=== PATIENT | female | born 1985 | race Caucasian/White ===

== ENCOUNTER 2022-04-25 13:18 | Inpatient (IN) ==
[2022-04-25 15:13] LABS: Hematocrit (blood only) 35.2 % (34.1-44.9); Hemoglobin 11.6 g/dl (12.0-16.0); Mean Corpuscular Hemoglobin 28.9 pg (25.0-34.0); Mean Corpuscular Volume 87.8 fL (80.0-100.0); Mean Platelet Volume 11.9 fL (9.4-12.3); Platelet Count 159 K/uL (130-400); RDW Coefficient of Variation 15.2 % (11.5-14.5); RDW Standard Deviation 48.3 fL (36.4-46.3); Red Blood Count 4.01 M/uL (3.93-5.22); White Blood Count 10.11 K/ul (4.8-10.8)
[2022-04-25 15:38] LABS: Alanine Aminotransferase 11 U/L (7-52); Aspartate Aminotransferase 19 U/L (13-39); Est GFR (African American) 130.8 ml/min; Est GFR (Non-African American) 112.9 ml/min
[2022-04-25 16:00] LABS: Creatinine Urine Random 32.2 mg/dl; Protein Creatinine Ratio Urine 0.2 (0-0.2); Total Protein Urine Random 7.7 mg/dl (0-11.9)
[2022-04-25] MEDS ORDERED: LACTATED RINGER'S 1,000 ML IV PRN (16:47)
--- NOTE | 2022-04-25 17:19 | History & Physical Report ---
Date of Service April 25, 2022 Assessment & Plan (1) Dichorionic diamniotic twin , antepartum: (2) Elevated blood pressure affecting , antepartum: Plan 36 y/o at 36 6/7 wga presents for twin NST, new findings of elevated BPs -Reviewed pt's BPs in depth - has had normal BPs prior to today except mild range on tues but no repeat was done. She denies symptoms and labwork was normal. Contacted [facility] to review case given current GA and they are in agreement with the following. She has had severes but have not persisted, however would meet criteria for pre-eclampsia w/ severe features if they occur 4 hours apart and this would indicate delivery. If no longer severe, would still meet criteria for gHTN and recommend delivery tomorrow at 37 wks. -all of this was reviewed in depth with the pt as well and she verbalized understanding. Will continue to monitor BPs for now, obtain covid test and IV. Will put twins back on monitor as well -ample time given for questions, answered to apparent satisfaction History of Present Illness Chief Complaint: NST, elevated BPs Primary Care Provider: NO PCP 36 y/o at 36 6/7 wga presented for twin NST today and this was noted to be reactive. +FM; denies ctx, LOF, VB. However, initial BP was noted to be mild range at 134/90. Repeat was higher in the 140s and BPs remained at least mild range with intermittent severe range BPs. First severe ranges did persist over 8 min period but did improve to mild range. 2 additional severes were noted but did not persist. Denies YU, vision change, CP, SOB, RUQ/epigastric pain. 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 2020 SAB G2 current 04/2021 neg cotest - needs pap 04/2022 denies hx STIs Allergies Allergy/AdvReac Type Severity Reaction Status Date / Time erythromycin base Allergy Unknown Unknown Verified 04/21/22 14:29 montelukast [From ir] Allergy Unknown Drowsy Verified 04/21/22 14:29 sulfamethoxazole Allergy Unknown Unknown Verified 04/21/22 14:29 [From ] trimethoprim [From ] Allergy Unknown Unknown Verified 04/21/22 14:29 Home Medications Medication Instructions Recorded Confirmed Type docosahexaenoic acid [ DHA] See Rx Instructions .Route .COMPLEX 10/18/21 04/21/22 History vitamin no.14-zyxh-CO-dha 1 pkg PO 1XD 10/18/21 04/21/22 History 27 mg iron-1 mg-150 mg oral pack (Theranatal Complete) aspirin 81 mg tablet,delayed 81 mg PO DAILY 01/02/22 04/21/22 History release levothyroxine 137 mcg tablet 137 mcg PO .COMPLEX #102 tabs 03/17/22 04/21/22 Rx breast pump #1 ea 04/08/22 04/21/22 Rx Patient History Medical History Acid reflux disease Anxiety ASCUS favor dysplasia Asthma Breast tenderness Depression with anxiety Fibroadenoma of breast Goiter Cindi's thyroiditis History of chicken pox History of migraine headaches Hypothyroidism Infertility Missed Ovarian cyst Pap smear of cervix with ASCUS, cannot exclude HGSIL Subclinical hypothyroidism Varicella Surgical History History of colposcopy S/P breast biopsy S/P wisdom tooth extraction Family History Grandmother (Paternal) Breast cancer Grandfather (Maternal) Hypertension Mother Hypertension Aunt Gestational diabetes Denies family history of Ovarian cancer Colorectal cancer Social History Smoking Status: Never smoker Second Hand Exposure: No; Hx Alcohol Use: No Hx Substance Use: No Preferred Language: Uzbek marital status: marital status details: Napoleon Mcleod (36) [phone] Current Living Situation: Spouse Current Living Situation Comment: FOB, 1 dog and 1 cat (FOB changing cat litter) current occupational status: employed current occupation: [employer] Feels Safe at Home: Yes Physical Activity Frequency: 1-2 Times per Week Physical Exam Genitourinary: OB Exam Monitor Tracing: + external FHT monitor used, + external uterine monitor used and + category I NST reactive x 2 Results & Data ([place]) Vital Signs (Past 12 Hours) Vital Signs Temp Pulse Resp BP 04/25/22 16:28 77 158/74 H 04/25/22 16:13 80 159/74 H 04/25/22 15:58 75 154/69 H 04/25/22 15:43 80 167/79 H 04/25/22 15:28 71 157/77 H 04/25/22 15:13 78 160/79 H 04/25/22 14:38 73 145/66 H 04/25/22 14:33 80 150/65 H 04/25/22 14:28 78 160/68 H 04/25/22 14:22 81 167/80 H 04/25/22 14:20 80 166/80 H 04/25/22 14:15 80 140/81 04/25/22 14:07 85 134/90 04/25/22 13:25 98.1 F 18 Laboratory Results OB Labs: Blood Type O Positive 10/22/21 Antibody Screen NEGATIVE 10/22/21 Hemoglobin 11.4 g/dl (12.0-16.0) L 04/15/22 Hematocrit 35.2 % (34.1-44.9) 04/15/22 Mean Corpuscular Volume 87.3 fL (80.0-100.0) 04/15/22 Platelet Count 185 K/uL (130-400) 04/15/22 Varicella-Zoster IgG Antibody 632.10 index 08/10/20 Rubella IgG Antibody Immune (Immune) 10/22/21 Rapid Plasma Reagin Nonreactive (Nonreactive) 10/22/21 Hepatitis B Surface Antigen Neg (Neg) 10/22/21 Hepatitis C Antibody Neg (Neg) 10/22/21 HIV (1&2) Ab and P24 Ag, 4th Gener Neg (Neg) 10/22/21 Glucose 1 Hour 50 gm LoadD 120 mg/dl (70-130) 02/27/22 Maternal Serum Alpha Fetoprotein 55.0 ng/mL 12/02/21 OB Optional Labs: Chlamydia trachomatis RNA NOT DETECTED (NOT DETECTED) 10/22/21 Neisseria gonorrhoeae RNA NOT DETECTED (NOT DETECTED) 10/22/21 Thyroid Stimulating Hormone (TSH) 0.750 uIu/ml (0.300-4.500) 03/13/22 Alpha Fetoprotein Triple Screen SEE NOTE 12/02/21 Labs Reviewed: carrier CF, fob neg low risk panorama , twins, boys 04/25/22 04/25/22 04/25/22 Range/Units 15:05 15:00 15:00 WBC 10.11 (4.8-10.8) K/ul RBC 4.01 (3.93-5.22) M/uL Hgb 11.6 L (12.0-16.0) g/dl Hct 35.2 (34.1-44.9) % MCV 87.8 (80.0-100.0) fL MCH 28.9 (25.0-34.0) pg MCHC 33.0 (32.0-36.0) g/dL RDW Std Deviation 48.3 H (36.4-46.3) fL RDW Coeff of Devan 15.2 H (11.5-14.5) % Plt Count 159 (130-400) K/uL MPV 11.9 (9.4-12.3) fL Creatinine 0.66 (0.6-1.2) mg/dl Est Cr Clr Drug Dosing Not Reportable Est GFR ( Amer) 130.8 ml/min Est GFR (Non-Af Amer) 112.9 ml/min AST 19 (13-39) U/L ALT 11 (7-52) U/L Ur Random Creatinine 32.2 mg/dl U Random Total Protein 7.7 (0-11.9) mg/dl Protein/Creatinin Ratio 0.2 (0-0.2) Diagnostic Findings 04/21 A EFW 68%, mild pelviectasis 03/24, ant plac B EFW 75%, right lat plac Coding Level of Care Code None Diagnoses Dichorionic diamniotic twin , antepartum O30.049 Elevated blood pressure affecting , antepartum O16.9
[2022-04-25] MEDS ORDERED: MAG SULFATE 4GM BOLUS FROM BAG IV ONE (18:18)
[2022-04-25] MEDS ORDERED: LABETALOL HCL IV 5 MG/ML 20ML IV STA (18:18)
[2022-04-25] MEDS ORDERED: SODIUM CHLORIDE 0.9% 250 ML IV PRN ×2 (18:23→18:34)
[2022-04-25] MEDS ORDERED: PHENYLEPHRINE 100MCG/ML 5ML SYR ONE (18:25)
[2022-04-25] MEDS ORDERED: fentaNYL citrate 100 MCG/2 ML VIAL ONE (18:25)
[2022-04-25] MEDS ORDERED: ONDANSETRON INJ 2 MG/ML 2 ML VIAL ONE (18:25)
[2022-04-25] MEDS ORDERED: OXYTOCIN 10 UNITS/ML 10ML VIAL ONE (18:25)
[2022-04-25] MEDS ORDERED: MoRPHine SULFATE PF 1 MG/ML 10 ML AMP/VIAL ONE (18:25)
--- NOTE | 2022-04-25 18:32 | Anesthesiology Consultation ---
Date of Service April 25, 2022 Assessment & Plan (1) Encounter for pre-operative examination: Chart Review Chart Review: Acceptable Risk for Surgery and Patient NOT seen in Pre Admission Testing Consults Requested none History Height/Weight Height: 5 ft 4 in Weight: 141.974 kg Allergies Allergy/AdvReac Type Severity Reaction Status Date / Time erythromycin base Allergy Unknown Unknown Verified 04/21/22 14:29 montelukast [From Singulair] Allergy Unknown Drowsy Verified 04/21/22 14:29 sulfamethoxazole Allergy Unknown Unknown Verified 04/21/22 14:29 [From Septra] trimethoprim [From Septra] Allergy Unknown Unknown Verified 04/21/22 14:29 Medications Home Medications Medication Instructions Recorded Confirmed Last Taken docosahexaenoic acid [ DHA] See Rx Instructions .Route .COMPLEX 10/18/21 04/21/22 04/15/22 1 vitamin no.65-lhvr-MZ-dha 1 pkg PO 1XD 10/18/21 04/21/22 04/15/22 09:00 27 mg iron-1 mg-150 mg oral pack (Theranatal Complete) aspirin 81 mg tablet,delayed 81 mg PO DAILY 01/02/22 04/21/22 1 Day Ago release ~04/14/22 levothyroxine 137 mcg tablet 137 mcg PO .COMPLEX #102 tabs 03/17/22 04/21/22 04/15/22 1 breast pump #1 ea 04/08/22 04/21/22 Unknown Active Medications Generic Name Dose Route Start Last Admin Trade Name Freq PRN Reason Stop Dose Admin Lactated Ringer's 1,000 mls @ 125 mls/hr 04/25/22 16:47 04/25/22 17:45 Lr IV 05/25/22 16:46 125 mls/hr .Q8H PRN Administration L&D Protocol Protocol Past Medical History Medical History Acid reflux disease Anxiety ASCUS favor dysplasia cannot r/o high grade, hpv neg Asthma Breast tenderness Depression with anxiety Fibroadenoma of breast Goiter Cindi's thyroiditis History of chicken pox History of migraine headaches Hypothyroidism Infertility Missed February 2021 Ovarian cyst Pap smear of cervix with ASCUS, cannot exclude HGSIL Subclinical hypothyroidism Varicella Exercise / Class Metabolic Activity II 4-5 Yardwork/Stairs/Walk up hill Past Family History Family History Grandmother (Paternal) Breast cancer Grandfather (Maternal) Hypertension Mother Hypertension Aunt Gestational diabetes Denies family history of Ovarian cancer Colorectal cancer Past Surgical History Surgical History History of colposcopy S/P breast biopsy S/P wisdom tooth extraction Past Anesthesia History No Hx of Anesthesia Complications and No Family Hx of Anesthesia Complications History of PONV No Hx of PONV and No Hx of Motion Sickness Social History Smoking Status: Never smoker Do You Dip or Chew Tobacco: No Hx Alcohol Use: No Hx Substance Use: No substance use type: does not use Physical Exam Vital Signs Last Vital Signs Temp 36.7 C 04/25/22 17:56 Pulse 83 04/25/22 17:58 Resp 18 04/25/22 17:56 BP 172/83 H 04/25/22 17:58 Testing Laboratory Results 04/25/22 15:00 04/25/22 15:00
--- NOTE | 2022-04-25 18:42 | Obstetrical Progress Note ---
Date of Service April 25, 2022 Assessment & Plan (1) Dichorionic diamniotic twin , antepartum: (2) Pre-eclampsia, severe: Plan 36 y/o at 36 6/7 wga presents for twin NS now with pre-eclampsia with severe features -discussed recommendation for delivery with diagnosis and GA. Babies are breech/transverse so not a candidate for vaginal delivery. IV labetalol 20mg ordered, will start magnesium. -Discussed indications, risks, benefits, alternatives with risks including infection, bleeding, injury to adjacent structures (bowel, bladder, ureters, blood vessels, nerves, baby), possible need for blood transfusion and/or life saving hysterectomy, VTE. Consent reviewed in detail w/ pt and signed after all questions answered to her satisfaction. Plan for 3g ancef. Anesthesia and peds made aware. Results & Data ([facility]) Vital Signs (Past 12 Hours) Vital Signs Temp Pulse Resp BP 04/25/22 17:56 98.1 F 18 04/25/22 17:58 83 172/83 H 04/25/22 17:44 76 170/79 H 04/25/22 17:29 74 161/77 H 04/25/22 17:13 78 147/82 H 04/25/22 16:28 77 158/74 H 04/25/22 16:13 80 159/74 H 04/25/22 15:58 75 154/69 H 04/25/22 15:43 80 167/79 H 04/25/22 15:28 71 157/77 H 04/25/22 15:13 78 160/79 H 04/25/22 14:38 73 145/66 H 04/25/22 14:33 80 150/65 H 04/25/22 14:28 78 160/68 H 04/25/22 14:22 81 167/80 H 04/25/22 14:20 80 166/80 H 04/25/22 14:15 80 140/81 04/25/22 14:07 85 134/90 04/25/22 13:25 98.1 F 18 PG Care Time/CCT Total # of Minutes Spent Total Time Spent with Patient: Total time spent is greater than 50% in coordination of care (as documented) at patient's floor/unit and/or counseling patient: Coding Level of Care Code None Diagnoses Dichorionic diamniotic twin , antepartum O30.049 Pre-eclampsia, severe O14.10
[2022-04-25] MEDS ORDERED: LACTATED RINGER'S 1,000 ML IV SCH (18:45)
[2022-04-25] MEDS ORDERED: CITRIC ACID/SODIUM CITRATE 15 ML UDC PO SCH (18:45)
[2022-04-25] MEDS: MAGNESIUM SULFATE / WTR 40 GM/1,000 ML BAG IV SCH (19:29)
[2022-04-25] MEDS ORDERED: LACTATED RINGER'S 500 ML IV PRN (19:48)
[2022-04-25] MEDS ORDERED: NALOXONE HCL 0.4 MG/1 ML VIAL/CARP IV PRN (19:48)
[2022-04-25] MEDS ORDERED: NALBUPHINE HCL INJ 10 MG/ML AMP IV PRN (19:48)
[2022-04-25] MEDS ORDERED: NALOXONE HCL 1 MG in SODIUM CHLORIDE 0.9% 1000ML 1,000 ML IV PRN (19:48)
[2022-04-25] MEDS ORDERED: MoRPHine SULFATE PF 1 MG/ML 10 ML AMP/VIAL INT SPINAL ONE (19:48)
[2022-04-25] MEDS ORDERED: diphenhydrAMINE 50 MG/ML VIAL IV PRN (19:48)
[2022-04-25] MEDS ORDERED: MoRPHine SULFATE 2 MG/ML CARP IV PRN (19:48)
[2022-04-25] MEDS ORDERED: NALOXONE HCL 0.08 MG in SYRINGE 1.8 ML IV PRN (19:48)
[2022-04-25] MEDS ORDERED: ePHEDrine sulfate 50 MG/ML AMP IV PRN (19:48)
[2022-04-25] MEDS ORDERED: NO NARCOTICS OR SEDATIVES SCH (20:00)
[2022-04-25] MEDS ORDERED: DC INTRASPINAL MORPHINE SCH (20:00)
[2022-04-25] MEDS ORDERED: SODIUM CHLORIDE 0.9% 1000ML 1,000 ML IV SCH (20:00)
[2022-04-25] MEDS ORDERED: ONDANSETRON INJ 2 MG/ML 2 ML VIAL IV PRN (20:51)
[2022-04-25] MEDS ORDERED: MAGNESIUM HYDROXIDE SUSP 30 ML UDC PO PRN (20:51)
[2022-04-25] MEDS ORDERED: BENZOCAINE 20% AER SPR 82.5 GM CAN EXT PRN (20:51)
[2022-04-25] MEDS ORDERED: HYDROCORTISONE ACETATE 25 MG SUPP PR PRN (20:51)
[2022-04-25] MEDS ORDERED: DIPHTHERIA/TETANUS/PERTUSSIS 0.5 ML SYR/VIAL IM ONE (20:51)
[2022-04-25] MEDS ORDERED: SENNA 8.6 MG TAB PO PRN (20:51)
--- NOTE | 2022-04-25 20:53 | Operative Report ---
PG Post Operative Report Pre & Post Diagnosis Operation Date: 04/25/22 19:30 Pre-Op Diagnosis: 1. Di-di twin intrauterine at 36 6/7 wga 2. Pre-eclampsia w/ severe features 3. Mild pyelectasis for baby A 4. AMA Post-Op Diagnosis: 1. Di-di twin intrauterine at 36 6/7 wga 2. Pre-eclampsia w/ severe features 3. Mild pyelectasis for baby A 4. AMA 5. Delivered I identified the patient and participated in the time-out.: Yes Procedure Operation Date: 04/25/22 19:30 Primary low transverse section Surgeon Lisa Heredia MD Feed Management Advisor MD Coby Estimated Blood Loss 800 Findings Consistent with Post-Op Diagnosis Normal appearing uterus, bilateral fallopian tubes and ovaries. Viable male infants with A having APGARs of 8 and 9, B having APGARs of 7 and 9 Specimens Placenta, cord blood, cord gases Drains Alexis Anesthesia Type Spinal Complications none Disposition Accompanied Patient To Recovery: Yes Disposition: L&D Indications 36 y/o at 36 6/7 wga presented for twin NST this afternoon. NSTs were reactive x 2 however BP was noted to be mildly elevated. BPs were further monitored and persistently mild range. Pre-eclampsia labs were drawn and wnl. Pt denied any symptoms. However BPs continued to be mildy elevated with intermittent severe ranges that would improve on repeat. However, severe range BPs did eventually become persistent requiring treatment and pt was diagnosed with pre-eclampsia with severe features. IV labetalol was given and magnesium started and she was recommended for delivery. Description of Procedure The patient was taken to the operating room after consents were ensured. The patient was properly identified. Spinal anesthesia was obtained without difficulty. The patient was placed in a dorsal supine position with left lateral tilt, then prepped and draped in normal sterile fashion. Surgical time out was performed. Antibiotics were given for prophylaxis. Anesthesia was tested to ensure adequate surgical levels. Pfannenstiel skin incision was performed and carried down to the underlying fascia with a knife. The fascia was then nicked in the midline and extended laterally with pickups and King scissors. Superior portion of the fascia was grasped with Kochers x2 and elevated off the underlying rectus muscles using blunt dissection. Inferior portion of the fascia was then grasped with Ioana clamps x2 and also elevated off the underlying muscles with blunt dissection. Midline was identified. The peritoneum was then entered and extended to provide adequate room for delivery of baby. The hand was inserted into the abdomen, uterus was noted to be clear of adhesions. Bladder blade was inserted, bladder flap was created in the usual fashion. A large troy retractor was placed with care to avoid entrapping maternal tissue. A low transverse uterine incision was made in the uterus and extended bluntly in a superior to inferior fashion. Amniotomy was made with clear fluid at the time of rupture. The feet of baby A were grabbed and delivered atraumatically through hysterotomy to the level of the scapula with fundal pressure. Moist blue towel was wrapped around the torso and arms delivered spontaneously as well as aftercoming head. Nose and mouth were bulb suctioned on the surgical field. The cord was double clamped and cut, baby was handed off to awaiting pediatrics staff. Cord segment and blood were obtained. Umbilical cord of baby A was demarcated with one umbilical clamp. Amniotomy for baby B was then performed. breech was grasped and delivered atraumatically through the hysterotomy with legs delivering spontaneously. Moist blue towel was wrapped around the torso and arms delivered atraumatically. head then delivered spontaneously. Cord was double clamped and cut and baby handed off to pediatrics. Cord segment and blood were obtained then demarcated with two umbilical clamps. Placenta was then extracted from the uterus. The uterus was exteriorized. Several passes were made inside the uterus to remove the remaining membranes. Attention was then turned to the hysterotomy, which was then closed with a running locked suture of 0 Vicryl on a CTX needle. An imbricating layer was then performed using 0-Monocryl. There was noted to be good hemostasis. The posterior cul-de-sac was then inspected and cleaned of clot and debris. The hysterotomy was again inspected and noted to be hemostatic. The uterus was returned to the abdomen. The right and left pericolic gutters were cleaned of all clot and debris. The hysterotomy was again noted to be hemostatic. Space of Retzius was noted to be hemostatic. Troy retractor was removed. The fascia was then closed with a running suture of 0 Vicryl on a CT1 needle from either end. Subcutaneous tissue was copiously irrigated and noted to be hemostatic. Subcutaneous tissue was re-approximated using 2-0 plain gut in two layers. The skin was then closed with a running suture of 3-0 Monocryl in a subcuticular fashion. At termination of the procedure, the fundal pressure was applied and a moderate amount of lochia was expressed. Pressure dressing was applied to the patient. She tolerated the procedure well. All sponge, needle, instrument counts were correct x 2. I attest to the content of the Intraoperative Record and any orders documented therein. Any exceptions are noted below. OB Procedure Charges 00902
--- NOTE | 2022-04-25 20:58 | Anesthesiology Progress Note ---
Date of Service April 25, 2022 Anesthesia Post Procedure Vital Signs Vital Signs: Temp Pulse Resp BP 04/25/22 17:56 36.7 C 18 04/25/22 19:14 81 149/75 H 04/25/22 19:06 81 149/69 H 04/25/22 18:57 74 162/76 H 04/25/22 18:47 87 183/88 H 04/25/22 17:58 83 172/83 H 04/25/22 17:44 76 170/79 H 04/25/22 17:29 74 161/77 H 04/25/22 17:13 78 147/82 H 04/25/22 16:28 77 158/74 H 04/25/22 16:13 80 159/74 H 04/25/22 15:58 75 154/69 H 04/25/22 15:43 80 167/79 H 04/25/22 15:28 71 157/77 H 04/25/22 15:13 78 160/79 H 04/25/22 14:38 73 145/66 H 04/25/22 14:33 80 150/65 H 04/25/22 14:28 78 160/68 H 04/25/22 14:22 81 167/80 H 04/25/22 14:20 80 166/80 H 04/25/22 14:15 80 140/81 04/25/22 14:07 85 134/90 04/25/22 13:25 36.7 C 18 Transfer of Care Handoff Completed per policy Notes Mental Status: alert / awake / arousable and participated in evaluation Patient Amnestic to Procedure: No Nausea / Vomiting: adequately controlled Pain: adequately controlled Airway Patency, RR, SpO2: stable & adequate BP & HR: stable & adequate Hydration State: stable & adequate Neuraxial Anesthesia: was administered and sensory block is resolving Anesthetic Complications: no major complications apparent and Pt Satisfied with anesthetic care
[2022-04-25] MEDS ORDERED: OXYTOCIN 20 UNITS in LACTATED RINGER'S 1,000 ML IV SCH (21:00)
[2022-04-25 21:02] LABS: Base Excess Cord Arterial Bld -1.1 mEq/L (-9-1.8); CO2 Cord Arterial Blood 48 mmHg (39.1-73.5); HCO3 Cord Arterial Blood 25 mmol/L (19.7-28.5); Oxygen Sat Cord Arterial Blood < 60.0 % (<60); PO2 Cord Arterial Blood 19 mmHg (4.1-31.7); pH Cord Arterial Blood 7.33 (7.1-7.38)
[2022-04-25 21:04] LABS: Base Excess Cord Arterial Bld -2.5 mEq/L (-9-1.8); Base Excess Cord Venous Blood -2.4 mEq/L (-7.7-1.9); CO2 Cord Arterial Blood 48 mmHg (39.1-73.5); Cord Venous Blood HCO3 24 mmol/L (18.4-26.8); Cord Venous Blood PCO2 45 mmHg (30.4-57.2); Cord Venous Blood PO2 19 mmHg (14.1-43.3); Cord Venous Blood pH 7.33 (7.20-7.44); HCO3 Cord Arterial Blood 24 mmol/L (19.7-28.5); O2 Saturation Cord Venous Bld < 60.0 % (<68); Oxygen Sat Cord Arterial Blood < 60.0 % (<60); PO2 Cord Arterial Blood 22 mmHg (4.1-31.7); pH Cord Arterial Blood 7.31 (7.1-7.38)
[2022-04-25] MEDS: DOCUSATE SODIUM 100 MG CAP PO SCH (23:35)
[2022-04-25] MEDS: SIMETHICONE 80 MG CHEW PO SCH (23:36)
[2022-04-25] MEDS: KETOROLAC 30 MG/ML VIAL IV PRN (23:44)
--- NOTE | 2022-04-26 06:37 | Obstetrical Progress Note ---
Date of Service <Maggie Hook DO - Last Filed: 04/26/22 06:37> April 26, 2022 Assessment & Plan <Maggie Hook DO - Last Filed: 04/26/22 06:37> (1) : Patient is PPD 1 s/p C section of twins and doing well. - Feels well today. Tolerating fluids, catheter still in place - Pain well controlled - OOB, ambulation, diet progression as tolerated today - After discharge, 6 [address] follow up with Dr[address] Heredia <Lisa Heredia MD - Last Filed: 04/26/22 07:29> (1) : Subjective <Maggie Hook DO - Last Filed: 04/26/22 06:37> Kamille Mcleod is a 36 yo female is POD #1 following delivery of twins at 36 weeks d/t pre eclampsia with severe features. She reports feeling well overall this morning. Her blood pressures were lower throughout the night and this morning (lower 100s/50s). She endorses abdominal pain with pressure but otherwise minimal pain well managed on analgesics. Catheter still in place. She has not been ambulating yet. She is tolerating fluids. Denies passing gas and bowel movements. SCDs on both legs. Currently planning to use a combination of breast and bottle for feeding. Review of Systems Denies fever, chills, sweats. Denies SOB, difficulty breathing, chest pain, palpitations, and chest pressure. Denies breast pain. Denies dysuria. Denies headache or changes in vision. Physical Exam <Maggie Hook DO - Last Filed: 04/26/22 06:37> General: Alert and oriented. No acute distress. CV: Regular rate and rhythm. No murmurs. Respiratory: CTA bilaterally. No rhonchi, wheezes, or crackles. No increased work of breathing. Abdomen: Positive bowel sounds. Soft, nontender, and nondistended. Uterus: Fundus firm and palpable. Surgical scar Lower extremities: No LE edema. No deep calf pain. Tyson's negative bilaterally. Results & Data ([facility]) <Maggie Hook DO - Last Filed: 04/26/22 06:37> Vital Signs (Past 12 Hours) Vital Signs Temp Pulse Resp BP Pulse Ox 04/26/22 06:00 16 04/26/22 05:00 16 04/25/22 19:15 20 04/25/22 19:00 20 04/26/22 04:00 16 04/26/22 03:00 18 04/26/22 01:00 18 04/26/22 00:00 18 04/25/22 22:50 18 04/25/22 22:50 18 04/25/22 22:20 18 04/25/22 21:50 18 04/25/22 21:40 18 04/25/22 21:30 18 04/25/22 21:10 18 04/25/22 21:00 18 04/25/22 21:20 24 04/25/22 20:52 36.6 C 17 04/26/22 06:25 80 100 04/26/22 06:20 86 99 04/26/22 06:15 82 100 04/26/22 06:11 85 90 04/26/22 06:10 84 99 04/26/22 06:05 81 98 04/26/22 06:00 84 98 04/26/22 05:55 80 91 04/26/22 05:50 87 98 04/26/22 05:45 77 98/50 L 99 04/26/22 05:42 76 94 04/26/22 05:40 72 97 04/26/22 05:37 79 94 04/26/22 05:35 76 96 04/26/22 05:30 77 96 04/26/22 05:25 80 95 04/26/22 05:20 70 95 04/26/22 05:19 71 93 04/26/22 05:15 76 95 04/26/22 05:13 70 93 04/26/22 05:10 76 95 04/26/22 05:07 79 94 04/26/22 05:05 78 95 04/26/22 05:00 77 95 04/26/22 04:58 74 93 04/26/22 04:55 79 93 04/26/22 04:53 79 94 04/26/22 04:50 79 90 04/26/22 04:47 73 94 04/26/22 04:45 75 106/52 L 99 04/26/22 04:40 94 04/26/22 04:40 76 04/26/22 04:40 75 97 04/26/22 04:35 86 100 04/26/22 04:33 75 93 04/26/22 04:30 74 94 04/26/22 04:28 81 93 04/26/22 04:25 76 97 04/26/22 04:20 79 99 04/26/22 04:16 77 93 04/26/22 04:15 75 94 04/26/22 04:09 76 92 04/26/22 04:10 74 94 04/26/22 04:05 74 96 04/26/22 04:01 78 94 04/26/22 04:00 75 95 04/26/22 03:55 93 04/26/22 03:55 74 04/26/22 03:55 78 96 04/26/22 03:50 73 94 04/26/22 03:48 73 94 04/26/22 03:45 74 114/53 L 98 04/26/22 03:42 76 94 04/26/22 03:40 72 97 04/26/22 03:37 75 92 04/26/22 03:35 77 94 04/26/22 03:31 74 93 04/26/22 03:30 84 97 04/26/22 03:25 76 95 04/26/22 03:22 72 94 04/26/22 03:20 76 94 04/26/22 03:15 93 04/26/22 03:15 76 04/26/22 03:15 75 96 04/26/22 03:10 76 96 04/26/22 03:05 86 97 04/26/22 03:00 85 97 04/26/22 02:55 75 97 04/26/22 02:51 73 92 04/26/22 02:50 78 96 04/26/22 02:45 76 113/56 L 98 04/26/22 02:40 77 97 04/26/22 02:35 81 99 04/26/22 02:32 74 93 04/26/22 02:30 79 94 04/26/22 02:25 74 94 04/26/22 02:20 82 98 04/26/22 02:18 76 94 04/26/22 02:15 77 95 04/26/22 02:12 77 94 04/26/22 02:10 77 94 04/26/22 02:07 75 91 04/26/22 02:05 87 98 04/26/22 02:00 94 04/26/22 02:00 78 04/26/22 02:00 77 96 04/26/22 01:54 79 94 04/26/22 01:55 74 93 04/26/22 01:50 75 92 04/26/22 01:49 77 93 04/26/22 01:45 77 95 04/26/22 01:44 76 116/58 L 04/26/22 01:43 80 94 04/26/22 01:40 77 95 04/26/22 01:37 76 94 04/26/22 01:35 80 95 04/26/22 01:30 93 04/26/22 01:30 77 04/26/22 01:30 76 95 04/26/22 01:25 83 96 04/26/22 01:20 77 94 04/26/22 01:18 78 93 04/26/22 01:15 76 92 04/26/22 01:13 78 93 04/26/22 01:10 79 95 04/26/22 01:05 94 04/26/22 01:05 76 04/26/22 01:05 77 96 04/26/22 01:00 79 93 04/26/22 00:54 77 94 04/26/22 00:55 76 93 04/26/22 00:50 75 95 04/26/22 00:48 74 94 04/26/22 00:45 82 98 04/26/22 00:44 84 129/63 04/26/22 00:42 76 93 04/26/22 00:40 87 97 04/26/22 00:35 81 96 04/26/22 00:30 76 96 04/26/22 00:25 78 96 04/26/22 00:20 81 96 04/26/22 00:15 82 97 04/26/22 00:10 90 99 04/26/22 00:05 84 96 04/26/22 00:00 84 97 04/25/22 23:55 80 97 04/25/22 23:50 78 97 04/25/22 23:45 86 97 04/25/22 23:40 84 96 04/25/22 23:39 80 122/61 04/25/22 23:35 83 97 04/25/22 23:30 84 97 04/25/22 23:28 82 121/62 04/25/22 23:25 80 97 04/25/22 23:20 82 98 04/25/22 23:19 82 122/63 04/25/22 23:15 85 97 04/25/22 23:10 79 96 04/25/22 23:08 78 119/60 04/25/22 23:05 81 96 04/25/22 23:00 83 95 04/25/22 22:59 80 122/59 L 94 04/25/22 22:55 86 96 04/25/22 22:52 81 94 04/25/22 22:50 81 98 04/25/22 22:49 78 118/89 04/25/22 22:45 80 96 04/25/22 22:40 88 97 04/25/22 22:35 80 136/60 99 04/25/22 22:30 83 97 04/25/22 22:29 82 160/123 H 04/25/22 22:25 82 97 04/25/22 22:20 80 98 04/25/22 22:19 83 140/70 04/25/22 22:15 81 99 04/25/22 22:10 77 98 04/25/22 22:09 80 138/60 04/25/22 22:05 77 99 04/25/22 22:00 79 98 04/25/22 21:59 78 136/56 L 04/25/22 21:55 78 98 04/25/22 21:50 82 98 04/25/22 21:49 73 141/63 H 04/25/22 21:45 76 100 04/25/22 21:40 78 99 04/25/22 21:38 78 125/63 04/25/22 21:35 78 98 04/25/22 21:30 80 97 04/25/22 21:28 85 112/63 04/25/22 21:25 74 99 04/25/22 21:20 76 97 04/25/22 21:19 81 94 04/25/22 21:17 77 104/51 L 04/25/22 21:15 75 100 04/25/22 21:10 73 100 04/25/22 21:05 76 98 04/25/22 19:14 81 149/75 H 04/25/22 19:06 81 149/69 H 04/25/22 18:57 74 162/76 H 04/25/22 18:47 87 183/88 H <Lisa Heredia MD - Last Filed: 04/26/22 07:29> Co-Signing Physician Notes Resident Physician Supervision Note: I interviewed and examined the patient. Discussed with Dr. Hook and agree with findings and plan as documented in the note. Any exceptions or cl arifications are listed here: POD1 s/p pLTCS for pre-eclampsia w/ severe features at 36 6/7 wga, currently on magnesium. Denies s/s PET. Good UOP via stevenson, reflexes. CBC still pending this AM but remainder of labs are still wnl. BPs normal. Dressing c/d/i. Continue mag until 24 hrs after delivery then routine pp care. Documented By: Lisa Heredia MD Resident Activity Tracking <Maggie Hook DO - Last Filed: 04/26/22 06:37> Resident Involvement: Resident Care Provided Care Provided: OB Delivery
[2022-04-26] MEDS: KETOROLAC 30 MG/ML VIAL IV PRN (06:44)
[2022-04-26] MEDS: LEVOTHYROXINE SODIUM 137 MCG TABLET PO SCH (06:46)
[2022-04-26 06:56] LABS: Albumin Globulin Ratio 1.2 (0.9-2); Albumin Level 2.6 gm/dl (3.4-5.0); BUN Creatinine Ratio 10.1 (10-20); Bilirubin,Total 0.2 mg/dl (0.2-1.0); Calcium 7.8 mg/dl (8.5-10.1); Creatinine Clr Calc Pharmacy 157.9 ml/min; Est GFR (African American) 128.9 ml/min; Est GFR (Non-African American) 111.2 ml/min; Globulin 2.1 gm/dl (2.5-4.0); Potassium 4.1 mmol/L (3.5-5.1); Total Protein 4.7 gm/dl (6.0-8.3)
[2022-04-26 07:23] LABS: Basophils # (auto) 0.04 K/uL (0-0.2); Basophils % (auto) 0.3 %; Eosinophils # (auto) 0.04 K/uL (0-0.50); Eosinophils % (auto) 0.3 %; Hematocrit (blood only) 28.7 % (34.1-44.9); Hemoglobin 9.3 g/dl (12.0-16.0); Immature Granulocytes # (auto) 0.09 K/uL (0.00-0.02); Immature Granulocytes % (auto) 0.6 %; Lymphocytes # (auto) 1.54 K/uL (1.2-3.4); Lymphocytes % (auto) 10.4 %; Mean Corpuscular Hemoglobin 28.4 pg (25.0-34.0); Mean Corpuscular Hgb Conc 32.4 g/dL (32.0-36.0); Mean Corpuscular Volume 87.5 fL (80.0-100.0); Mean Platelet Volume 12.1 fL (9.4-12.3); Monocytes # (auto) 1.06 K/uL (0.24-0.82); Monocytes % (auto) 7.2 %; Neutrophils # (auto) 11.99 K/uL (1.4-6.5); Neutrophils % (auto) 81.2 %; Platelet Count 146 K/uL (130-400); RDW Coefficient of Variation 15.1 % (11.5-14.5); RDW Standard Deviation 48.1 fL (36.4-46.3); Red Blood Count 3.28 M/uL (3.93-5.22); White Blood Count 14.76 K/ul (4.8-10.8)
[2022-04-26] MEDS: SIMETHICONE 80 MG CHEW PO SCH ×4 (12:57→20:52)
[2022-04-26] MEDS: PRENATAL VITAMIN 1 TAB PO SCH (12:59)
[2022-04-26] MEDS: MAGNESIUM SULFATE / WTR 40 GM/1,000 ML BAG IV SCH (13:07)
[2022-04-26] MEDS: FERROUS SULFATE 325 MG TAB PO SCH (13:13)
[2022-04-26] MEDS: DOCUSATE SODIUM 100 MG CAP PO SCH ×2 (13:13→20:52)
[2022-04-26] MEDS ORDERED: diphenhydrAMINE Capsule 25 MG CAP PO PRN (13:49)
[2022-04-26] MEDS ORDERED: PROMETHAZINE HCL 25 MG in SODIUM CHLORIDE 0.9% 50 ML IV PRN (13:49)
[2022-04-26] MEDS ORDERED: KETOROLAC 30 MG/ML VIAL IV PRN (13:49)
[2022-04-26] MEDS ORDERED: diphenhydrAMINE 50 MG/ML VIAL IV PRN (13:49)
[2022-04-26] MEDS: LACTATED RINGER'S 1,000 ML IV SCH ×3 (16:06→16:07)
[2022-04-26] MEDS ORDERED: ACETAMINOPHEN 325 MG TAB PO PRN (16:18)
[2022-04-26] MEDS ORDERED: bisacodyL 5 MG TABEC PO SCH (20:00)
[2022-04-26] MEDS: oxyCODONE/ACETAMINOPHEN 5mg/325mg TAB PO PRN (20:51)
[2022-04-26] MEDS: IBUPROFEN 600 MG TAB PO PRN (20:53)
[2022-04-27] MEDS: oxyCODONE/ACETAMINOPHEN 5mg/325mg TAB PO PRN ×5 (02:57→20:31)
[2022-04-27] MEDS: IBUPROFEN 600 MG TAB PO PRN ×5 (02:58→20:31)
[2022-04-27] MEDS ORDERED: LEVOTHYROXINE SODIUM 137 MCG TABLET PO SCH (06:30)
[2022-04-27 07:24] LABS: Hematocrit (blood only) 28.6 % (34.1-44.9); Hemoglobin 9.1 g/dl (12.0-16.0)
[2022-04-27] MEDS: SIMETHICONE 80 MG CHEW PO SCH ×4 (08:09→20:31)
[2022-04-27] MEDS: DOCUSATE SODIUM 100 MG CAP PO SCH ×2 (08:09→20:31)
[2022-04-27] MEDS: FERROUS SULFATE 325 MG TAB PO SCH (08:10)
[2022-04-27] MEDS: PRENATAL VITAMIN 1 TAB PO SCH (08:10)
--- NOTE | 2022-04-27 09:26 | Obstetrical Progress Note ---
Date of Service April 27, 2022 Assessment & Plan (1) Pre-eclampsia, severe: S/P 24hr magnesium. No YU, RUQ pain, vision changes. Feels "much better" this morning. BP almost entirely normalized; one value of 141/80 this AM, will observe for trend. (2) Dichorionic diamniotic twin , antepartum: Cheerful this morning, receiving assistance from nursing staff with care of infants, bottle feeding due to minimal milk production thus far, but trying to pump and stimulate breastmilk as well. (3) delivery delivered: Incisional dressing clean, but unable to be removed this morning without disrupting infant feed. RN at the bedside (Minna Lang) offered to remove dressing during patient shower later today, which will also ease removal, so it was left in place for now. Wound care discussed at patient request. Subjective Ambulation: ambulating normally Voiding: no voiding problems Passing Gas:: Yes Diet Tolerance:: regular diet Lochia:: Small Feeding Type:: bottle feeding (Pumping but not producing much of anything yet, so bottle feeding x2 infants) Current Pain Level(1-10): 0 Physical Exam Constitutional WD/WN, vitals as above Eyes PERRL, conjunctivae normal, anicteric sclerae ENMT external ear and nose normal, oropharynx normal Neck trachea midline, no thyromegaly Respiratory normal respiratory effort and able to speak in complete sentences; no respiratory distress, no labored breathing and does not use accessory muscles Cardiovascular Rate/Rhythm: regular rate and regular rhythm Extremities: + pedal edema (with indentations from SCD's, removed for exam, Tyson neg bilaterally); no calf tenderness Chest (Breasts) Breast: normal inspection of breasts Gastrointestinal (Abdomen) Inspection/Auscultation: abdomen normal to inspection (obese) and + abdominal surgical incision (dressing incompletely accessible during infant feeding, but c/d/i.); abdomen not distended Musculoskeletal no cyanosis or clubbing, extremities motor strength 5/5 Skin no rashes, warm and dry Neurologic patellar DTR's 2+ bilat, sensation intact Psychiatric A+Ox3, euthymic affect Genitourinary Speculum/Bimanual Exam: uterus nontender OB Exam Abdomen: + fundal height (at umbilicus) Fundus: + firm Results & Data ([facility]) Vital Signs (Past 12 Hours) Vital Signs Temp Pulse Resp BP Pulse Ox O2 Del Method 04/27/22 07:15 98.1 F 73 18 141/80 H 97 Room Air 04/27/22 03:00 111/71 04/26/22 23:30 98.4 F 79 16 135/85 96 Room Air Laboratory Results Laboratory Results - last 24 hr 04/27/22 06:41 Hgb 9.1 L Hct 28.6 L Vital Signs Temp Pulse Pulse Resp BP BP Pulse Ox 04/27/22 07:15 98.1 F 73 18 141/80 H 97 04/27/22 03:00 111/71 04/26/22 23:30 98.4 F 79 16 135/85 96 04/26/22 21:00 98.1 F 83 16 111/75 96 04/26/22 19:06 97.5 F L 18 04/26/22 19:06 18 04/26/22 18:05 18 04/26/22 18:05 18 04/26/22 17:15 16 04/26/22 17:15 18 04/26/22 14:10 97.7 F 16 04/26/22 16:10 16 04/26/22 15:10 18 04/26/22 14:10 18 04/26/22 13:10 16 04/26/22 13:10 16 04/26/22 12:10 18 04/26/22 11:20 98.1 F 18 04/26/22 11:20 18 04/26/22 10:10 16 04/26/22 20:05 90 96 04/26/22 20:00 82 96 04/26/22 19:55 81 95 04/26/22 19:53 81 94 04/26/22 19:50 86 96 04/26/22 19:48 80 94 04/26/22 19:45 82 95 04/26/22 19:44 80 97/53 L 04/26/22 19:40 81 95 04/26/22 19:35 80 96 04/26/22 19:30 80 95 04/26/22 19:25 80 95 04/26/22 19:24 83 94 04/26/22 19:20 85 94 04/26/22 19:19 88 94 04/26/22 19:15 86 96 04/26/22 19:10 83 96 04/26/22 19:06 85 94 04/26/22 19:05 87 96 04/26/22 19:04 84 115/57 L 04/26/22 19:00 92 H 97 04/26/22 18:55 82 95 04/26/22 18:50 82 97 04/26/22 18:45 81 96 04/26/22 18:44 81 94/52 L 04/26/22 18:40 81 96 04/26/22 18:35 83 96 04/26/22 18:30 86 97 04/26/22 18:25 87 96 04/26/22 18:20 85 96 04/26/22 18:15 85 97 04/26/22 18:10 81 97 04/26/22 18:05 92 H 96 04/26/22 18:00 86 95 04/26/22 17:55 86 96 04/26/22 17:50 82 95 04/26/22 17:45 91 H 96 04/26/22 17:44 90 105/54 L 04/26/22 17:40 85 97 04/26/22 17:35 87 97 04/26/22 17:30 90 97 04/26/22 17:25 88 96 04/26/22 17:20 89 97 04/26/22 17:15 83 97 04/26/22 17:10 81 97 04/26/22 17:05 85 98 04/26/22 17:00 82 97 04/26/22 16:55 86 97 04/26/22 16:50 83 97 04/26/22 16:45 84 97 04/26/22 16:44 80 18 106/58 L 04/26/22 16:40 76 96 04/26/22 16:35 78 97 04/26/22 16:30 89 98 04/26/22 16:25 86 97 04/26/22 16:23 81 94 04/26/22 16:20 81 96 04/26/22 16:15 80 97 04/26/22 16:10 80 96 04/26/22 16:05 87 98 04/26/22 16:00 77 95 04/26/22 15:55 79 95 04/26/22 15:51 80 94 04/26/22 15:50 78 94 04/26/22 15:45 88 94 04/26/22 15:44 85 104/58 L 04/26/22 15:39 83 92 04/26/22 15:40 84 96 04/26/22 15:35 78 96 04/26/22 15:30 79 96 04/26/22 15:25 80 95 04/26/22 15:20 94 04/26/22 15:20 80 04/26/22 15:20 81 93 04/26/22 15:15 79 96 04/26/22 15:10 79 95 04/26/22 15:07 78 94 04/26/22 15:05 80 96 04/26/22 15:00 79 95 04/26/22 14:54 79 94 04/26/22 14:55 79 94 04/26/22 14:49 79 93 04/26/22 14:50 79 95 04/26/22 14:45 98 04/26/22 14:45 86 04/26/22 14:45 81 16 94/51 L 04/26/22 14:40 86 97 04/26/22 14:35 83 96 04/26/22 14:30 88 97 04/26/22 14:25 80 96 04/26/22 14:20 82 96 04/26/22 14:18 89 94 04/26/22 14:15 78 94 04/26/22 14:13 76 94 04/26/22 14:10 85 93 04/26/22 14:07 80 92 04/26/22 14:05 83 98 04/26/22 14:00 76 93 04/26/22 13:56 82 16 109/56 L 04/26/22 13:55 85 99 04/26/22 13:50 78 95 04/26/22 13:45 83 96 04/26/22 13:40 83 97 04/26/22 13:38 84 94 04/26/22 13:35 79 95 04/26/22 13:30 81 96 04/26/22 13:25 83 97 04/26/22 13:20 85 96 04/26/22 13:15 86 97 04/26/22 13:10 83 96 04/26/22 13:05 88 97 04/26/22 13:00 84 97 04/26/22 12:56 82 18 108/58 L 04/26/22 12:55 90 97 04/26/22 12:50 85 98 04/26/22 12:45 87 96 04/26/22 12:40 87 96 04/26/22 12:35 89 97 04/26/22 12:30 87 97 04/26/22 12:25 80 98 04/26/22 12:20 83 97 04/26/22 12:15 82 97 04/26/22 12:10 81 98 04/26/22 12:05 79 97 04/26/22 12:02 82 18 103/55 L 04/26/22 12:00 84 97 04/26/22 11:55 79 96 04/26/22 11:50 84 97 04/26/22 11:45 82 98 04/26/22 11:40 81 96 04/26/22 11:35 82 97 04/26/22 11:30 79 97 04/26/22 11:25 85 95 04/26/22 11:20 87 96 04/26/22 11:15 83 98 04/26/22 11:10 82 98 04/26/22 11:05 80 96 04/26/22 11:00 83 97 04/26/22 10:55 82 97 04/26/22 10:50 81 97 04/26/22 10:45 80 98 04/26/22 10:44 80 18 107/56 L 04/26/22 10:40 82 97 04/26/22 10:35 83 98 04/26/22 10:30 82 97 04/26/22 10:25 75 97 04/26/22 10:20 77 96 04/26/22 10:17 75 94 04/26/22 10:15 78 97 04/26/22 10:10 75 95 04/26/22 10:07 77 94 04/26/22 10:05 83 98 04/26/22 10:00 78 94 04/26/22 09:55 94 04/26/22 09:55 82 04/26/22 09:55 79 94 04/26/22 09:50 84 98 04/26/22 09:48 77 94 04/26/22 09:45 80 98 04/26/22 09:44 81 96/52 L 04/26/22 09:40 76 97 04/26/22 09:38 81 93 04/26/22 09:35 75 94 04/26/22 09:31 79 94 07/30/22 09:30 82 96 04/26/22 09:25 79 95 04/26/22 09:24 79 94 O2 Del Method 04/27/22 07:15 Room Air 04/27/22 03:00 04/26/22 23:30 Room Air 04/26/22 21:00 Room Air 04/26/22 19:06 04/26/22 19:06 04/26/22 18:05 04/26/22 18:05 04/26/22 17:15 04/26/22 17:15 04/26/22 14:10 04/26/22 16:10 04/26/22 15:10 04/26/22 14:10 04/26/22 13:10 04/26/22 13:10 04/26/22 12:10 04/26/22 11:20 04/26/22 11:20 04/26/22 10:10 04/26/22 20:05 04/26/22 20:00 04/26/22 19:55 04/26/22 19:53 04/26/22 19:50 04/26/22 19:48 04/26/22 19:45 04/26/22 19:44 04/26/22 19:40 04/26/22 19:35 04/26/22 19:30 04/26/22 19:25 04/26/22 19:24 04/26/22 19:20 04/26/22 19:19 04/26/22 19:15 04/26/22 19:10 04/26/22 19:06 04/26/22 19:05 04/26/22 19:04 04/26/22 19:00 04/26/22 18:55 04/26/22 18:50 04/26/22 18:45 04/26/22 18:44 04/26/22 18:40 04/26/22 18:35 04/26/22 18:30 04/26/22 18:25 04/26/22 18:20 04/26/22 18:15 04/26/22 18:10 04/26/22 18:05 04/26/22 18:00 04/26/22 17:55 04/26/22 17:50 04/26/22 17:45 04/26/22 17:44 04/26/22 17:40 04/26/22 17:35 04/26/22 17:30 04/26/22 17:25 04/26/22 17:20 04/26/22 17:15 04/26/22 17:10 04/26/22 17:05 04/26/22 17:00 04/26/22 16:55 04/26/22 16:50 04/26/22 16:45 04/26/22 16:44 04/26/22 16:40 04/26/22 16:35 04/26/22 16:30 04/26/22 16:25 04/26/22 16:23 04/26/22 16:20 04/26/22 16:15 04/26/22 16:10 04/26/22 16:05 04/26/22 16:00 04/26/22 15:55 04/26/22 15:51 04/26/22 15:50 04/26/22 15:45 04/26/22 15:44 04/26/22 15:39 04/26/22 15:40 04/26/22 15:35 04/26/22 15:30 04/26/22 15:25 04/26/22 15:20 04/26/22 15:20 04/26/22 15:20 04/26/22 15:15 04/26/22 15:10 04/26/22 15:07 04/26/22 15:05 04/26/22 15:00 04/26/22 14:54 04/26/22 14:55 04/26/22 14:49 04/26/22 14:50 04/26/22 14:45 04/26/22 14:45 04/26/22 14:45 04/26/22 14:40 04/26/22 14:35 04/26/22 14:30 04/26/22 14:25 04/26/22 14:20 04/26/22 14:18 04/26/22 14:15 04/26/22 14:13 04/26/22 14:10 04/26/22 14:07 04/26/22 14:05 04/26/22 14:00 04/26/22 13:56 04/26/22 13:55 04/26/22 13:50 04/26/22 13:45 04/26/22 13:40 04/26/22 13:38 04/26/22 13:35 04/26/22 13:30 04/26/22 13:25 04/26/22 13:20 04/26/22 13:15 04/26/22 13:10 04/26/22 13:05 04/26/22 13:00 04/26/22 12:56 04/26/22 12:55 04/26/22 12:50 04/26/22 12:45 04/26/22 12:40 04/26/22 12:35 04/26/22 12:30 04/26/22 12:25 04/26/22 12:20 04/26/22 12:15 04/26/22 12:10 04/26/22 12:05 04/26/22 12:02 04/26/22 12:00 04/26/22 11:55 04/26/22 11:50 04/26/22 11:45 04/26/22 11:40 04/26/22 11:35 04/26/22 11:30 04/26/22 11:25 04/26/22 11:20 04/26/22 11:15 04/26/22 11:10 04/26/22 11:05 04/26/22 11:00 04/26/22 10:55 04/26/22 10:50 04/26/22 10:45 04/26/22 10:44 04/26/22 10:40 04/26/22 10:35 04/26/22 10:30 04/26/22 10:25 04/26/22 10:20 04/26/22 10:17 04/26/22 10:15 04/26/22 10:10 04/26/22 10:07 04/26/22 10:05 04/26/22 10:00 04/26/22 09:55 04/26/22 09:55 04/26/22 09:55 04/26/22 09:50 04/26/22 09:48 04/26/22 09:45 04/26/22 09:44 04/26/22 09:40 04/26/22 09:38 04/26/22 09:35 04/26/22 09:31 04/26/22 09:30 04/26/22 09:25 04/26/22 09:24 Intake and Output 04/26/22 04/27/22 04/27/22 22:59 06:59 14:59 Intake Total 1713.75 / 2397.084 Output Total 2600 / 3900 Balance -886.25 / -1502.916 Intake: IV 1713.75 / 2397.084 Lactated Ringer's 1,000 ml @ 1343.75 / 1343.75 125 mls/hr IV .Q8H YORDAN Rx#: [id number] Magnesium Sulfate / Wtr 40 gm 370 / 825.834 In 1,000 ml @ 50 mls/hr IV . Q20H YORDAN Rx#:[id number] Output: Urine Amount (Catheter) 2600 / 3900 Alexis/Indwelling 2600 / 3900
[2022-04-27] MEDS: LACTATED RINGER'S 1,000 ML IV SCH (20:18)
[2022-04-27] MEDS ORDERED: bisacodyL 10 MG SUPP PR PRN (20:46)
[2022-04-28] MEDS: LACTATED RINGER'S 1,000 ML IV SCH ×2 (00:28→03:07)
[2022-04-28] MEDS: IBUPROFEN 600 MG TAB PO PRN ×3 (00:32→08:18)
[2022-04-28] MEDS: oxyCODONE/ACETAMINOPHEN 5mg/325mg TAB PO PRN ×3 (00:32→08:19)
--- NOTE | 2022-04-28 05:30 | Obstetrical Progress Note ---
Date of Service April 28, 2022 Assessment & Plan (1) state: Patient is PPD 3 s/p twin C section d/t pre-eclampsia with severe features and doing well. - Eating well, voiding well, ambulating well - Vitals reviewed and within normal limits. Blood pressures over the last 24 hours mostly in 120s-130s/65-80s. One pressure yesterday (7 AM) was 141/80. - Pain well controlled with - OOB, ambulation, diet progression as tolerated - Blood type: O+, GBS neg, rubella immune - Plan to discharge today - After discharge, 6 week follow up with Dr. Giovanna Da Silva Kamille Mcleod is a 36 yo female is POD #3 following delivery of dichorionic/diamniotic twins at 36 weeks d/t pre-eclampsia with severe features. She reports feeling well overall this morning. She was pumping when we talked this morning. Breast feeding is going well. She denies abdominal cramping and 1- 2/10 pain well managed on analgesics. Voiding without issue. Tolerating regular meals overnight and able to ambulate some. She has passed gas but no bowel movement. Persistent, minimal lochia with some improvement this morning. She is hoping to go home today. Review of Systems Denies fever, chills, sweats. Denies SOB, difficulty breathing, chest pain, palpitations, and chest pressure. Denies breast pain. Denies dysuria. Denies headache. She explains that she had an episode of blurry vision "on the outside of my eye" for about 10 minutes yesterday. This has not happened again. Physical Exam General: Alert and oriented. No acute distress. CV: Regular rate and rhythm. No murmurs. Respiratory: CTA bilaterally. No rhonchi, wheezes, or crackles. No increased work of breathing. Abdomen: Positive bowel sounds. Soft, nontender, and nondistended. Uterus: Fundus firm and palpable. Unable to evaluate surgical scar d/t position for pumping. Lower extremities: Minimal LE edema. No deep calf pain. Results & Data ([facility]) Vital Signs (Past 12 Hours) Vital Signs Temp Pulse Resp BP Pulse Ox O2 Del Method 04/28/22 04:29 36.9 C 83 14 135/80 97 Room Air 04/27/22 23:30 36.9 C 76 18 122/78 98 Room Air 04/27/22 19:30 36.9 C 80 16 123/81 99 Room Air Resident Activity Tracking Resident Involvement: Resident Care Provided Care Provided: OB Delivery
[2022-04-28] MEDS: LEVOTHYROXINE SODIUM 137 MCG TABLET PO SCH (06:26)
[2022-04-28] MEDS: PRENATAL VITAMIN 1 TAB PO SCH (08:18)
[2022-04-28] MEDS: FERROUS SULFATE 325 MG TAB PO SCH (08:18)
[2022-04-28] MEDS: DOCUSATE SODIUM 100 MG CAP PO SCH (08:18)
[2022-04-28] MEDS: SIMETHICONE 80 MG CHEW PO SCH (08:18)
--- NOTE | 2022-04-30 09:49 | Discharge Summary ---
Date of Service April 30, 2022 Admission HPI Per Admitting Provider 36 y/o at 36 6/7 wga presented for twin NST today and this was noted to be reactive. +FM; denies ctx, LOF, VB. However, initial BP was noted to be mild range at 134/90. Repeat was higher in the 140s and BPs remained at least mild range with intermittent severe range BPs. First severe ranges did persist over 8 min period but did improve to mild range. 2 additional severes were noted but did not persist. Denies YU, vision change, CP, SOB, RUQ/epigastric pain. 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 NSTs were reactive x 2 however BP was noted to be mildly elevated. BPs were further monitored and persistently mild range. Pre-eclampsia labs were drawn and wnl. Pt denied any symptoms. However BPs continued to be mildy elevated with intermittent severe ranges that would improve on repeat. However, severe range BPs did eventually become persistent requiring treatment and pt was diagnosed with pre-eclampsia with severe features. IV labetalol was given and magnesium started and she was recommended for delivery. See operative report for details. Postop, the pt continued 24 hrs of magnesium. Labs and BPs remained normal and she was found to be stable for discharge on POD3 Coding Level of Care Code None Diagnoses Dichorionic diamniotic twin , antepartum O30.049 Pre-eclampsia, severe O14.10 delivery delivered O82
== END 2022-04-28 10:00 | disposition home or self-care (01) | DRG 788 ==
LOC: OPB 13:18 → 4S1 13:20 → 4E2 04-26 20:33